=== PATIENT | female | born 1955 | race Caucasian/White ===

== ENCOUNTER 2016-07-15 10:39 | Outpatient (CLI) | payer OTHER | END 2016-07-15 10:40 | disposition home or self-care (01) | DX: R53.83 Other fatigue (principal); E55.9 Vitamin D deficiency, unspecified; F32.9 Major depressive disorder, single episode, unspecified ==

== ENCOUNTER 2016-09-16 09:41 | Outpatient (CLI) | payer OTHER | END 2016-09-16 09:42 | disposition home or self-care (01) | DX: E03.9 Hypothyroidism, unspecified (principal) ==

== ENCOUNTER 2016-11-11 08:00 | Outpatient (CLI) | payer OTHER | END 2016-11-11 08:01 | disposition home or self-care (01) | DX: R19.7 Diarrhea, unspecified (principal); K58.0 Irritable bowel syndrome with diarrhea ==

== ENCOUNTER 2016-11-11 09:16 | Outpatient (CLI) | payer OTHER ==
[2016-11-11 18:13] LABS: BASOPHILS % (AUTO) 0.7 %; EOSINOPHILS # (AUTO) 0.1 10^3/uL (0.0-0.7); EOSINOPHILS % (AUTO) 0.9 %; HCT - HEMATOCRIT 37.8 % (37.0-47.0); HGB - HEMOGLOBIN 12.5 g/dL (12.0-16.0); LYMPHOCYTES % (AUTO) 31.6 %; MEAN CORPUSCULAR HEMOGLOBIN 30.5 pg (27.0-31.0); MEAN CORPUSCULAR HGB CONC 32.9 g/dL (32.0-36.0); MEAN CORPUSCULAR VOLUME 92.5 fL (81.0-99.0); MEAN PLATELET VOLUME 8.3 fL (7.9-10.8); MONOCYTES # (AUTO) 0.5 10^3/uL (0.0-1.0); NEUTROPHILS # (AUTO) 3.6 10^3/uL (1.5-6.6); NEUTROPHILS % (AUTO) 58.8 %; NUCLEATED RED BLOOD CELLS AUTO 0.1 /100WBC; RED BLOOD COUNT 4.09 10^6/uL (4.20-5.40); RED CELL DISTRIBUTION WIDTH 13.7 % (12.0-15.0); UNCORRECTED WHITE BLOOD COUNT 6.2 x10^3/uL; WHITE BLOOD COUNT 6.2 x10^3/uL (4.8-10.8)
== END 2016-11-11 09:17 | disposition home or self-care (01) ==
LOC: LAB.F 09:16
PROVIDERS: ATTEND Nurse Practitioner Family
DX: G89.4 Chronic pain syndrome (principal)
CPT/HCPCS: 36415; 81599; 85025; 87177; 87209; 87329

== ENCOUNTER 2017-02-03 10:48 | Outpatient (CLI) | payer OTHER ==
[2017-02-03 17:54] LABS: BASOPHILS % (AUTO) 0.9 %; EOSINOPHILS % (AUTO) 1.1 %; HCT - HEMATOCRIT 40.7 % (37.0-47.0); HGB - HEMOGLOBIN 13.3 g/dL (12.0-16.0); LYMPHOCYTES # (AUTO) 1.6 10^3/uL (1.5-3.5); LYMPHOCYTES % (AUTO) 35.6 %; MEAN CORPUSCULAR HEMOGLOBIN 30.5 pg (27.0-31.0); MEAN CORPUSCULAR HGB CONC 32.8 g/dL (32.0-36.0); MEAN CORPUSCULAR VOLUME 93.1 fL (81.0-99.0); MEAN PLATELET VOLUME 7.8 fL (7.9-10.8); MONOCYTES # (AUTO) 0.3 10^3/uL (0.0-1.0); NEUTROPHILS # (AUTO) 2.5 10^3/uL (1.5-6.6); NEUTROPHILS % (AUTO) 56.4 %; NUCLEATED RED BLOOD CELLS AUTO 0.1 /100WBC; RED BLOOD COUNT 4.37 10^6/uL (4.20-5.40); RED CELL DISTRIBUTION WIDTH 13.9 % (12.0-15.0); UNCORRECTED WHITE BLOOD COUNT 4.5 x10^3/uL; WHITE BLOOD COUNT 4.5 x10^3/uL (4.8-10.8)
[2017-02-03 18:40] LABS: ALBUMIN/GLOBULIN RATIO 1.6 (1.0-2.2); BILIRUBIN,TOTAL 0.9 mg/dL (0.2-1.0); BUN - BLOOD UREA NITROGEN 21 mg/dL (6-20); CALCIUM 9.2 mg/dL (8.5-10.3); CARBON DIOXIDE - CO2 28 mmol/L (21-32); CHLORIDE 103 mmol/L (101-111); CHOL/HDL RATIO 3.6 (<4.4); CHOLESTEROL 238 mg/dL; CREATININE 0.8 mg/dL (0.4-1.0); GFR - MDRD 72 (>89); GLUCOSE 81 mg/dL (70-100); HDL CHOLESTEROL 66 mg/dL; LDL/HDL RATIO 2.4 (<4.4); POTASSIUM 3.9 mmol/L (3.5-5.0); SODIUM 137 mmol/L (135-145); TOTAL PROTEIN 6.8 g/dL (6.7-8.2); TRIGLYCERIDES 58 mg/dL; VLDL CHOLESTEROL 12 mg/dL
[2017-02-03 18:54] LABS: FERRITIN 61.1 ng/mL (11.0-306.8)
[2017-02-03 19:08] LABS: THYROID STIMULATING HORMONE 1.85 uIU/mL (0.34-5.60)
== END 2017-02-03 10:49 | disposition home or self-care (01) ==
LOC: LAB.F 10:48
PROVIDERS: ATTEND Nurse Practitioner Family
DX: Z00.00 Encounter for general adult medical examination without abnormal findings (principal); E55.9 Vitamin D deficiency, unspecified; E78.5 Hyperlipidemia, unspecified; E03.9 Hypothyroidism, unspecified
CPT/HCPCS: 36415; 80053; 80061; 82306; 82728; 84436; 84439; 84443; 84481; 85025

== ENCOUNTER 2017-05-12 09:59 | Outpatient (CLI) | payer OTHER ==
[2017-05-12 18:12] LABS: BASOPHILS % (AUTO) 1.1 %; EOSINOPHILS % (AUTO) 1.1 %; HCT - HEMATOCRIT 39.2 % (37.0-47.0); LYMPHOCYTES # (AUTO) 1.6 10^3/uL (1.5-3.5); LYMPHOCYTES % (AUTO) 42.8 %; MEAN CORPUSCULAR HEMOGLOBIN 30.8 pg (27.0-31.0); MEAN CORPUSCULAR HGB CONC 33.2 g/dL (32.0-36.0); MEAN CORPUSCULAR VOLUME 92.9 fL (81.0-99.0); MEAN PLATELET VOLUME 7.9 fL (7.9-10.8); MONOCYTES # (AUTO) 0.3 10^3/uL (0.0-1.0); MONOCYTES % (AUTO) 8.9 %; NEUTROPHILS # (AUTO) 1.8 10^3/uL (1.5-6.6); NEUTROPHILS % (AUTO) 46.1 %; RED BLOOD COUNT 4.22 10^6/uL (4.20-5.40); RED CELL DISTRIBUTION WIDTH 13.5 % (12.0-15.0); UNCORRECTED WHITE BLOOD COUNT 3.8 x10^3/uL; WHITE BLOOD COUNT 3.8 x10^3/uL (4.8-10.8)
[2017-05-12 18:40] LABS: THYROID STIMULATING HORMONE 2.67 uIU/mL (0.34-5.60)
[2017-05-12 18:45] LABS: FERRITIN 68.8 ng/mL (11.0-306.8)
[2017-05-12 18:53] LABS: ALBUMIN/GLOBULIN RATIO 1.4 (1.0-2.2); BILIRUBIN,TOTAL 0.6 mg/dL (0.2-1.0); BUN - BLOOD UREA NITROGEN 23 mg/dL (6-20); CARBON DIOXIDE - CO2 27 mmol/L (21-32); CHLORIDE 105 mmol/L (101-111); CHOL/HDL RATIO 3.7 (<4.4); CHOLESTEROL 257 mg/dL; CREATININE 0.8 mg/dL (0.4-1.0); GFR - MDRD 72 (>89); GLUCOSE 87 mg/dL (70-100); HDL CHOLESTEROL 69 mg/dL; LDL/HDL RATIO 2.5 (<4.4); POTASSIUM 4.1 mmol/L (3.5-5.0); SODIUM 137 mmol/L (135-145); TOTAL PROTEIN 7.2 g/dL (6.7-8.2); TRIGLYCERIDES 66 mg/dL; VLDL CHOLESTEROL 13 mg/dL
== END 2017-05-12 10:00 | disposition home or self-care (01) ==
LOC: LAB.F 09:59
PROVIDERS: ATTEND Nurse Practitioner Family
DX: Z00.00 Encounter for general adult medical examination without abnormal findings (principal); E55.9 Vitamin D deficiency, unspecified; E78.5 Hyperlipidemia, unspecified; E03.9 Hypothyroidism, unspecified
CPT/HCPCS: 36415; 80053; 80061; 82306; 82728; 84436; 84439; 84443; 84481; 85025

== ENCOUNTER 2018-03-16 14:54 | Outpatient (CLI) | payer OTHER ==
--- NOTE | 2018-03-17 10:38 | DEXA Report ---
Reason: SCREENING, POST MENOPAUSAL Procedure Date: 03/16/2018 Accession Number: [id number] / [id number] Procedure: DEX - Dexa Spine and/or Hip CPT Code: FULL RESULT: EXAM: Dexa Spine and/or Hip DATE: 03/16/2018 3:46 PM CLINICAL HISTORY: SCREENING, POST MENOPAUSAL TECHNIQUE: Dual energy x-ray absorptiometry (DXA) was performed on a [id number] System. Regions measured are the AP Spine, femoral neck, and if needed forearm. COMPARISON: None. In accordance with the International Society for Clinical Densitometry (ISCD) guidelines, data from previous exams may be reanalyzed using current recommendations and techniques. This is done to allow a more accurate basis for comparison with the current study. FINDINGS: The data for the lumbar spine is as follows: BMD (g/cm/cm) T-SCORE Z-SCORE REGION L1 0.964 -1.4 0.1 L2 1.042 -1.3 0.2 L3 1.091 -0.9 0.6 L4 1.165 -0.3 1.2 TOTAL 1.074 -0.9 0.6 NOTE: All evaluable vertebrae are used for classification The data for the hip is as follows: BMD (g/cm/cm) T-SCORE Z-SCORE REGION Neck 0.775 -1.9 -0.5 TOTAL 0.843 -1.3 -0.2 NOTE: The femoral neck or total proximal femur, whichever is lowest, is used for classification. IMPRESSION: THE WHO CLASSIFICATION BASED ON THE INTERNATIONAL REFERENCE STANDARD IS OSTEOPENIA. THE FRACTURE RISK IS INCREASED. RECOMMENDATION: Patients with diagnosis of osteoporosis or osteopenia should have regular bone mineral density assessment. For those eligible for Medicare, routine testing is allowed once every 2 years. Testing frequency can be increased for patients who have rapidly progressing disease or for those who are receiving medical therapy to restore bone mass. COMMENT: World Health Organization (WHO) definitions for osteoporosis and osteopenia: NORMAL BMD: T-score at -1.0 or higher, fracture risk is low OSTEOPENIA BMD: T-score between -1.0 and -2.5, fracture risk is increased. OSTEOPOROSIS BMD: T-score at -2.5 or lower, fracture risk is high. National Osteoporosis Foundation recommends: 1. Obtain adequate dietary calcium (at least 1200 mg per day) and vitamin D (400-800 international units per day). 2. Participate, as appropriate, in regular weightbearing and muscle-strengthening exercise. 3. Avoid tobacco use and reduce alcohol and caffeine intake. 4. For more detailed information see the website at www.NOF.org.
== END 2018-03-16 14:55 | disposition home or self-care (01) ==
LOC: DI 14:54
PROVIDERS: ATTEND Registered Nurse
DX: Z13.820 Encounter for screening for osteoporosis (principal); M85.88 Other specified disorders of bone density and structure, other site; N95.8 Other specified menopausal and perimenopausal disorders
CPT/HCPCS: 77080

== ENCOUNTER 2018-04-20 14:41 | Outpatient (CLI) | payer OTHER ==
--- NOTE | 2018-04-21 16:53 | XRAY Report ---
Reason: NECK PAIN,LIMITED ROM WITH LEFT FLEXION AND ROTATI Procedure Date: 04/20/2018 Accession Number: [id number] / [id number] Procedure: XR - Cervical Spine 2 View CPT Code: FULL RESULT: EXAM: CERVICAL SPINE RADIOGRAPHY EXAM DATE: 04/20/2018 03:04 PM. CLINICAL HISTORY: NECK PAIN,LIMITED ROM WITH LEFT FLEXION AND ROTATION. COMPARISONS: None. TECHNIQUE: 3 views. FINDINGS: Alignment: Straightening of normal cervical lordosis. No spondylolisthesis or scoliosis. Bones: The cervical vertebral bodies and posterior elements are well visualized from the skull base through C7-T1. No fractures or bone lesions. Disks: C4-C5, C5-C6, C6-C7 osteophyte disk space narrowing. Facets: Mid to lower facet arthropathy. Soft Tissues: Normal. No prevertebral soft tissue swelling. The visualized lung apices are clear. IMPRESSION: Moderate DJD RADIA
== END 2018-04-20 14:42 | disposition home or self-care (01) ==
LOC: DI 14:41
PROVIDERS: ATTEND Registered Nurse
DX: M47.812 Spondylosis without myelopathy or radiculopathy, cervical region (principal)
CPT/HCPCS: 72040

== ENCOUNTER 2019-03-29 15:36 | Outpatient (CLI) | payer OTHER ==
--- NOTE | 2019-03-31 01:12 | XRAY Report ---
Reason: PAIN IN RIGHT KNEE Procedure Date: 03/29/2019 Accession Number: [id number] / [id number] Procedure: XR - Knee 2 View RT CPT Code: FULL RESULT: EXAM: RIGHT KNEE RADIOGRAPHY EXAM DATE: 03/29/2019 03:46 PM. CLINICAL HISTORY: PAIN IN RIGHT KNEE. COMPARISON: None. TECHNIQUE: 2 views. FINDINGS: Bones: Normal. No fractures or bone lesions. Joints: Normal. No effusion. No subluxations. Soft Tissues: Anterior soft tissue swelling. IMPRESSION: Soft tissue swelling, but no evidence of fracture. RADIA
== END 2019-03-29 15:37 | disposition home or self-care (01) ==
LOC: DI 15:36
PROVIDERS: ATTEND Nurse Practitioner Family
DX: M25.561 Pain in right knee (principal); R22.41 Localized swelling, mass and lump, right lower limb

== ENCOUNTER 2019-09-06 12:01 | Outpatient (CLI) | payer MEDICARE, OTHER ==
--- NOTE | 2019-09-06 15:44 | XRAY Report ---
Reason: LOCALIZED EDEMA Procedure Date: 09/06/2019 Accession Number: [id number] / [id number] Procedure: XR - Hand 2 View RT CPT Code: Final Report FULL RESULT: EXAM: RIGHT HAND RADIOGRAPHY EXAM DATE: 09/06/2019 12:15 PM. CLINICAL HISTORY: LOCALIZED EDEMA. Swelling at the thumb and middle finger. COMPARISON: WRIST 4 VIEW RT 01/01/2013 4:32 PM. TECHNIQUE: 2 views. FINDINGS: Bones: Normal. No fractures or bone lesions. Joints: Normal. No subluxations. Soft Tissues: Normal. No significant soft tissue swelling. IMPRESSION: Normal right hand radiography. RADIA
== END 2019-09-06 12:02 | disposition home or self-care (01) ==
LOC: DI 12:01
PROVIDERS: ATTEND Nurse Practitioner Family
DX: R60.0 Localized edema (principal)

== ENCOUNTER 2019-12-10 14:26 | Outpatient (CLI) | payer MEDICARE, OTHER ==
--- NOTE | 2019-12-18 09:43 | Mammography Report ---
BILATERAL DIGITAL SCREENING MAMMOGRAM 3D/2D: 12/10/2019 CLINICAL: Routine screening. No prior exams were available for comparison. The tissue of both breasts is heterogeneously dense. T his may lower the sensitivity of mammography. There is a possible 1 cm equal density focal asymmetry in the right breast central to the nipple midd le depth. No other significant masses, calcifications, or other findings are seen in either breast. IMPRESSION: INCOMPLETE: NEEDS ADDITIONAL IMAGING EVALUATION The possible 1 cm equal density focal asymmetry in the right breast is indeterminate. Additional vie ws with possible ultrasound are recommended. This exam was interpreted at Station ID: [id number]. NOTE: For mammograms, a report in lay terms will be sent to the patient. Approximately 15% of breast malignancies will not be visualized mammographically. In the management of a palpable breast mass, a negative mammogram must not discourage biopsy of a clinically suspicious lesion. Electronically Signed By: Chuck Odell M.D. aty/:12/17/2019 17:18:11 ACR BI-RADS Category 0: Incomplete 3340F PARENCHYMAL PATTERN: (D) - The breast(s) demonstrate(s) heterogeneously dense fibroglandular ananya christianson. BI-RADS CATEGORY: (0) - 0 Mammo and [place] [id number] Immediate follow-up LATERALITY: (R)
== END 2019-12-10 14:27 | disposition home or self-care (01) ==
LOC: DI 14:26
PROVIDERS: ATTEND Registered Nurse
DX: Z12.31 Encounter for screening mammogram for malignant neoplasm of breast (principal); R92.8 Other abnormal and inconclusive findings on diagnostic imaging of breast
CPT/HCPCS: 77063; 77067

== ENCOUNTER 2020-01-14 08:58 | Outpatient (CLI) | payer MEDICARE, OTHER ==
--- NOTE | 2020-01-15 15:12 | Mammography Report ---
UNILATERAL RIGHT DIGITAL DIAGNOSTIC MAMMOGRAM 3D/2D: 01/14/2020 CLINICAL: Patient returns today to evaluate a focal asymmetry in the right breast. Comparison is made to exams dated: 12/10/2019 mammogram - [facility], 04/17/2015 [facility], and 05/04/2012 mammogram - [facility]. The tissue of right breast is heterogeneously dense. This may lower the sensitivity of mammography. There is a 7 mm irregular asymmetry with an indistinct margin in the right breast central to the nipp le anterior depth 3.5 cm from the nipple. This is less prominent. No other significant masses or calcifications are seen in the breast. IMPRESSION: INCOMPLETE: NEEDS ADDITIONAL IMAGING EVALUATION The 7 mm irregular asymmetry in the right breast is indeterminate. An ultrasound was recommended and scheduled to immediately follow this examination. This exam was interpreted at Station ID: [id number]. NOTE: For mammograms, a report in lay terms will be sent to the patient. Approximately 15% of breast malignancies will not be visualized mammographically. In the management of a palpable breast mass, a negative mammogram must not discourage biopsy of a clinically suspicious lesion. Electronically Signed By: James Oconnor M.D. jr/:01/14/2020 10:11:54 ACR BI-RADS Category 0: Incomplete 3340F PARENCHYMAL PATTERN: (D) - The breast(s) demonstrate(s) heterogeneously dense fibroglandular ananya christianson. BI-RADS CATEGORY: (0) - 0 Ultrasound [id number] Immediate follow-up LATERALITY: (B)
--- NOTE | 2020-01-15 15:12 | Ultrasound Report ---
LIMITED ULTRASOUND OF RIGHT BREAST: 01/14/2020 CLINICAL: Patient returns today to evaluate a density in the right breast. Comparison is made to exams dated: 01/14/2020 mammogram, 12/10/2019 mammogram - [facility], 04/17/2015 mammogram, and 05/04/2012 mammogram - [facility]. Ultrasound of the right breast retroareolar was performed. No significant abnormalities were seen sonographically in the right breast. IMPRESSION: NEGATIVE There is no sonographic evidence of malignancy. Previously described small asymmetry, seen only on m ammographic images, is unchanged over multiple prior studies and is statistically benign. [facility] is recommended. This exam was interpreted at Station ID: [id number]. Electronically Signed By: James Oconnor M.D. jr/:01/14/2020 11:13:56 Ultrasound BI-RADS: 1 Negative BI-RADS CATEGORY: (1) - 1 RECOMMENDATION: (ANNUAL) - Recommend routine annual screening mammography. [id number] 1 year screening LATERALITY: (B)
== END 2020-01-14 08:59 | disposition home or self-care (01) ==
LOC: DI 08:58
PROVIDERS: ATTEND Registered Nurse
DX: R92.8 Other abnormal and inconclusive findings on diagnostic imaging of breast (principal)
CPT/HCPCS: 76642

== ENCOUNTER 2020-03-23 10:25 | Emergency (ER) | payer MEDICARE, OTHER ==
[2020-03-23 11:10] LABS: BASOPHILS # (AUTO) 0.1 10^3/uL (0.0-0.1); BASOPHILS % (AUTO) 1.2 %; EOSINOPHILS # (AUTO) 0.1 10^3/uL (0.0-0.7); EOSINOPHILS % (AUTO) 1.9 %; HGB - HEMOGLOBIN 13.9 g/dL (12.0-16.0); LYMPHOCYTES # (AUTO) 1.4 10^3/uL (1.5-3.5); LYMPHOCYTES % (AUTO) 33.6 %; MEAN CORPUSCULAR HEMOGLOBIN 31.3 pg (27.0-31.0); MEAN CORPUSCULAR HGB CONC 33.7 g/dL (32.0-36.0); MEAN PLATELET VOLUME 8.8 fL (7.9-10.8); MONOCYTES # (AUTO) 0.4 10^3/uL (0.0-1.0); NEUTROPHILS # (AUTO) 2.3 10^3/uL (1.5-6.6); NEUTROPHILS % (AUTO) 54.1 %; PLT - PLATELET COUNT 267 10^3/uL (130-450); RED BLOOD COUNT 4.44 10^6/uL (4.20-5.40); RED CELL DISTRIBUTION WIDTH 12.8 % (12.0-15.0); WHITE BLOOD COUNT 4.2 x10^3/uL (4.8-10.8)
[2020-03-23 11:22] LABS: ALBUMIN 4.2 g/dL (3.2-5.5); ALBUMIN/GLOBULIN RATIO 1.4 (1.0-2.2); BILIRUBIN,TOTAL 0.8 mg/dL (0.2-1.0); CALCIUM 9.3 mg/dL (8.5-10.3); CREATININE 0.8 mg/dL (0.4-1.0); TOTAL PROTEIN 7.2 g/dL (6.7-8.2)
--- NOTE | 2020-03-23 11:22 | XRAY Report ---
PROCEDURE: Chest 1 View X-Ray INDICATIONS: Chest pain TECHNIQUE: One view of the chest was acquired. COMPARISON: None FINDINGS: Surgical changes and devices: Cholecystectomy clips are seen. Lungs and pleura: No pleural effusions or pneumothorax. Lungs are clear. Mediastinum: Mediastinal contours appear normal. Heart size is normal. Bones and chest wall: No suspicious bony lesions. Age-appropriate degenerative changes are seen. Overlying soft tissues appear unremarkable. IMPRESSION: No acute cardiopulmonary process is seen. Postoperative and degenerative changes are seen. Reviewed by: Gonzales Cota MD on 03/23/2020 10:21 AM SHIRA Approved by: Gonzales Cota MD on 03/23/2020 10:21 AM SHIRA Station ID: [id number]
--- NOTE | 2020-03-23 11:28 | ED Physician Documentation ---
PD HPI CHEST PAIN - Stated complaint Stated Complaint: CP - Chief complaint Chief Complaint: Cardiac - History obtained from History obtained from: Patient - History of Present Illness Timing - onset: How many hours ago (3) Timing - onset during: Rest Timing - duration: Minutes (only lasted about 3 minutes of pressure feeling across chest. Then went away. No further symptoms this morning. She has had somewhat similar chest pressure with walking/moderate exertion for couple of months. Had some a year ago as well, during some light exertion. Saw Card iologist who did ETT.) Timing - details: Gradual onset, Still present, Intermittant Review of Systems Constitutional: denies: Fever, Chills Nose: denies: Rhinorrhea / runny nose, Congestion Throat: denies: Sore throat Cardiac: reports: Chest pain / pressure. denies: Palpitations, Pedal edema, Calf pain Respiratory: denies: Dyspnea, Cough GI: denies: Abdominal Pain, Nausea, Vomiting Skin: denies: Rash, Lesions Neurologic: denies: Focal weakness, Numbness, Near syncope, Altered mental status, Headache PD PAST MEDICAL HISTORY - Past Medical History Cardiovascular: None Respiratory: None Neuro: None, Head injury, Headaches Endocrine/Autoimmune: None GI: GERD TRAINING AND DEVELOPMENT ASSISTANT: None : None HEENT: None Psych: Depression, Anxiety Musculoskeletal: Fibromyalgia Derm: None - Past Surgical History Past Surgical History: Yes General: Cholecystectomy Ortho: Spine surgery /TRAINING AND DEVELOPMENT ASSISTANT: section HEENT: Cataracts - Present Medications Home Medications: Ambulatory Orders Medication Instructions Recorded Confirmed Albuterol Sulfate [Albuterol 2 puffs IH QID #1 hfa.aer.ad 03/23/20 Sulfate Hfa] - Allergies Allergies/Adverse Reactions: Allergies Allergy/AdvReac Type Severity Reaction Status Date / Time metronidazole Allergy Unknown Verified 03/23/20 10:36 Penicillins AdvReac Unknown Verified 03/23/20 10:36 - Social History Does the pt smoke?: No Smoking Status: Never smoker Does the pt drink ETOH?: Yes ETOH Use: Beer Does the pt have substance abuse?: No - Immunizations Immunizations are current?: Yes PD ED PE NORMAL - Vitals Vital signs reviewed: Yes - General General: Alert and oriented X 3, No acute distress, Well developed/nourished - HEENT HEENT: Pharynx benign - Neck Neck: Supple, no meningeal sign, No adenopathy - Cardiac Cardiac: RRR, No murmur - Respiratory Respiratory: Clear bilaterally - Abdomen Abdomen: Soft, Non tender - Back Back: No CVA TTP - Derm Derm: Normal color, Warm and dry, No rash - Extremities Extremities: No deformity, No tenderness to palpate, Normal ROM s pain, No katarina ma, No calf tenderness / cord - Neuro Neuro: Alert and oriented X 3, No motor deficit, Normal speech Results - Vitals Vitals: Vital Signs - 24 hr 03/23/20 03/23/20 03/23/20 10:37 11:27 12:24 Temperature 97.9 C H 37.0 C Heart Rate 74 61 60 Respiratory 16 23 16 Rate Blood Pressure 133/53 H 128/64 122/66 O2 Saturation 99 98 98 Oxygen O2 Source Room air - EKG (time done) 10:32 Rate: Rate (enter#) (78) Rhythm: NSR Duson: Normal QRS: Poor R wave progression Ischemia: Normal ST segments. No: ST elevation c/w ischemia, ST depression - Labs Labs: Laboratory Tests 03/23/20 03/23/20 03/23/20 11:00 11:00 11:00 WBC 4.2 L RBC 4.44 Hgb 13.9 Hct 41.3 MCV 93.0 MCH 31.3 H MCHC 33.7 RDW 12.8 Plt Count 267 MPV 8.8 Neut # (Auto) 2.3 Lymph # (Auto) 1.4 L [place] # (Auto) 0.4 Eos # (Auto) 0.1 Baso # (Auto) 0.1 Absolute Nucleated RBC 0.00 Nucleated RBC % 0.0 Sodium 140 Potassium 4.1 Chloride 103 Carbon Dioxide 32 Anion Gap 5.0 L BUN 22 H Creatinine 0.8 Estimated GFR (MDRD) 72 L Glucose 80 Calcium 9.3 Total Bilirubin 0.8 AST 18 ALT 16 Alkaline Phosphatase 93 Troponin I High Sens < 2.3 L Total Protein 7.2 Albumin 4.2 Globulin 3.0 Albumin/Globulin Ratio 1.4 Lipase 38 - Rads (name of study) chest xray Radiology: Prelim report reviewed (no acute process), See rad report PD MEDICAL DECISION MAKING - ED course Complexity details: re-evaluated patient (Has had some exertional similar syptoms. Had Cardiology in [place] appt and had ETT that was normal. Continued to have CP with exertion. ), considered differential (brief CP this morning 3 hours ago. Also Feeling okay since. Can get ECG/CXR/Labs. ), d/w patient Departure - Departure Disposition: 01 Home, Self Care Clinical Impression: Chest discomfort Clinical Impression: (Ruled Out): Myocardial infarction Condition: Stable Record reviewed to determine appropriate education?: Yes Instructions: ED Chest Pain Atypical Unkn Cause Follow-Up: Meenakshi Rodriguez ARNP [Primary Care Provider] - Prescriptions: Albuterol Sulfate [Albuterol Sulfate Hfa] 2 puffs IH QID #1 hfa.aer.ad Comments: EKG/chest x-ray/blood tests are normal here so no signs of heart attack or significant heart or lung problems. It is unclear the cause of your symptoms f rom earlier today. For your dyspnea with activity, you could try an albuterol inhaler 2 puffs about 20 minutes prior to activity and see if it helps. If persistent symptoms, you can get back with your primary care or the it data architect you had seen to see if they want to do any further testing beyond the basic stress test they had done. Discharge Date/Time: 03/23/20 12:33
[2020-03-23 12:26] VITALS: BP 122/66
== END 2020-03-23 12:33 | disposition home or self-care (01) ==
LOC: ED 10:25
DX: R07.89 Other chest pain (principal); R06.00 Dyspnea, unspecified
CPT/HCPCS: 36415; 71045; 80053; 83690; 84484; 85025; 93005; 99284

== ENCOUNTER 2020-03-24 09:33 | Outpatient (CLI) | payer MEDICARE, OTHER ==
--- NOTE | 2020-03-24 12:56 | DEXA Report ---
PROCEDURE: Dexa Spine and/or Hip INDICATIONS: BONE DISORDER TECHNIQUE: Dual energy x-ray absorptiometry (DXA) was performed on a [employer] System. Regions measur ed are the AP Spine, femoral neck, and if needed forearm. COMPARISON: DEXA 03/16/2018 FINDINGS: Lumbar Spine: Bone Mineral Density 1.054 g/cm/cm,T score -1.1, compared to 0.9 on prior exam Left Hip: Bone Mineral Density 0.82 g/cm/cm,T score -1.4, compared to -1.3 on prior exam. Left Femoral Neck: Bone Mineral Density 0.768 g/cm/cm, T score -1.9, compared to -1.9 on prior exam. (T score greater or equal to -1.0: NORMAL) (T score from -1.1 to -2.4: OSTEOPENIA) (T score less than or equal to -2.5 to: OSTEOPOROSIS) Impression: Mild osteopenia left hip and moderate in the left femoral neck relatively stable compared to prior exam. Slight loss of bone density within the lumbar spine. Patients with diagnosis of osteoporosis or osteopenia should have regular bone mineral density assess ment. For those eligible for Medicare, routine testing is allowed once every 2 years. Testing frequ ency can be increased for patients who have rapidly progressing disease or for those who are receivin g medical therapy to restore bone mass. Reviewed by: Hattie Mcdonald MD on 03/24/2020 12:54 PM PDT Approved by: Hattie Mcdonald MD on 03/24/2020 12:54 PM PDT Station ID: [id number]
== END 2020-03-24 09:34 | disposition home or self-care (01) ==
LOC: DI 09:33
PROVIDERS: ATTEND Registered Nurse
DX: M85.89 Other specified disorders of bone density and structure, multiple sites (principal)
CPT/HCPCS: 77080

== ENCOUNTER 2020-04-25 15:18 | Outpatient (CLI) | payer MEDICARE, OTHER | END 2020-04-25 15:19 | disposition home or self-care (01) | LOC: LAB 15:18 | PROVIDERS: ATTEND Surgery | DX: Z01.812 Encounter for preprocedural laboratory examination (principal); K64.9 Unspecified hemorrhoids; Z20.828 Contact with and (suspected) exposure to other viral communicable diseases ==

== ENCOUNTER 2020-04-28 06:56 | Day surgery (SDC) | payer MEDICARE, OTHER ==
[2020-04-28] MEDS ORDERED: ONDANSETRON 4 MG/2 ML VIAL IVP ONE (06:57)
[2020-04-28] MEDS ORDERED: PROPOFOL 200 MG/20 ML VIAL IVP ONE (06:57)
[2020-04-28] MEDS ORDERED: MIDAZOLAM 2 MG/2 ML VIAL IVP ONE (06:57)
[2020-04-28] MEDS ORDERED: fentaNYL 100 MCG/2 ML VIAL IVP ONE (06:57)
[2020-04-28] MEDS ORDERED: KETOROLAC 30 MG/ML VIAL IVP ONE (06:57)
[2020-04-28] MEDS ORDERED: DEXAMETHASONE 4 MG/ML VIAL IVP ONE (06:57)
[2020-04-28] MEDS ORDERED: LIDOCAINE-MPF 2% 5 ML VIAL IM ONE (06:57)
[2020-04-28] MEDS ORDERED: CEFAZOLIN SODIUM IN 0.9 % NACL 2 GM/100 ML BAG IV ONE (07:24)
[2020-04-28] MEDS ORDERED: LACTATED RINGERS 1,000 ML IV ONE ×2 (07:28→10:03)
--- NOTE | 2020-04-28 08:29 | ANESTHESIA ---
Pre-Anesthesia VS, & Labs - Diagnosis large thrombosed external hemorrhoid - Procedure external hemorrhoidectomy Vital Signs: Temp Pulse Resp BP Pulse Ox 36.8 C 62 12 132/58 H 100 04/28/20 07:28 04/28/20 07:28 04/28/20 07:28 04/28/20 07:28 04/28/20 07:28 Height: 5 ft 3 in Weight (kg): 69 kg Body Mass Index: 26.9 BMI Classification: Overweight - NPO >8 hours - Is Patient ?: No Home Medications and Allergies Home Medications: Ambulatory Orders Acyclovir [Zovirax] 400 mg PO TID PRN 04/17/20 Doxylamine Succinate [Unisom] 25 mg PO QPM PRN 04/17/20 Naltrexone HCl 50 mg PO DAILY 04/17/20 Acyclovir [Zovirax] 400 mg PO TID PRN 04/17/20 Doxylamine Succinate [Unisom] 25 mg PO QPM PRN 04/17/20 Naltrexone HCl 50 mg PO DAILY 04/17/20 Allergies/Adverse Reactions: Allergies Allergy/AdvReac Type Severity Reaction Status Date / Time metronidazole Allergy Hives Verified 04/17/20 14:26 erythromycin base AdvReac Emesis Verified 04/17/20 14:26 Penicillins AdvReac Unknown Verified 03/23/20 10:36 Anes History & Medical History - Anesthetic History Anesthesia Complications: reports: No previous complications - Medical History Cardiovascular: reports: None Pulmonary: reports: Asthma (exercise induced asthma. 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.), Headaches Musculoskeletal: reports: Fibromyalgia Endocrine/Autoimmune: reports: None, Other (eliz tse syndrome) Blood Disorders: reports: None Skin: reports: None Smoking Status: Never smoker Psychosocial: reports: Other (PTSD) History of Cancer?: No - Surgical History General: Cholecystectomy, Colonoscopy Eyes Ears Nose Throat (EENT): Cataracts Gynecologic: section Orthopedic: Spine surgery Exam General: Alert, Oriented x3, Cooperative, No acute distress Dental: WNL Mouth Openin Fingerbreadth Neck Mobility: Normal Mallampati classification: II Thyromental Distance: 4-6 cm Mental/Cognitive Status: Alert/Oriented X3, Normal for patient Plan Anesthesia Type: General Consent for Procedure(s) Verified and Reviewed: Yes Code Status: Attempt Resuscitation ASA classification: 2-Mild systemic disease Is this case an emergency?: No
[2020-04-28] MEDS ORDERED: BUPIVACAINE 0.5% PF 30 ML VIAL ONE (09:00)
[2020-04-28] MEDS ORDERED: LIDOCAINE 1%-EPI 1:100000 20 ML MDV ONE (09:01)
[2020-04-28] MEDS ORDERED: BUPIVACAINE 0.5% PF 30 ML VIAL INFIL ONE ×2 (09:31)
[2020-04-28] MEDS ORDERED: LIDOCAINE 1%-EPI 1:100000 20 ML MDV SUBQ ONE ×2 (09:32)
[2020-04-28] MEDS ORDERED: ONDANSETRON 4 MG/2 ML VIAL IVP PRN ×2 (09:53→09:58)
[2020-04-28] MEDS ORDERED: ePHEDrine 50 MG/ML VIAL IVP PRN (09:53)
[2020-04-28] MEDS ORDERED: HYDROmorphone 0.5 MG/0.5 ML SYRINGE IVP PRN (09:53)
[2020-04-28] MEDS ORDERED: METOCLOPRAMIDE 10 MG/2 ML VIAL IVP PRN (09:53)
[2020-04-28] MEDS ORDERED: ATROPINE ABBOJECT 1 MG/10 ML SYRINGE IVP PRN (09:53)
[2020-04-28] MEDS ORDERED: fentaNYL 100 MCG/2 ML VIAL IVP PRN (09:53)
[2020-04-28] MEDS ORDERED: MORPHINE 2 MG/ML CARPUJECT IVP PRN (09:53)
[2020-04-28] MEDS ORDERED: NALOXONE 0.4 MG/ML VIAL IVP PRN (09:53)
--- NOTE | 2020-04-28 09:58 | OPERATIVE REPORT ---
Operative Report - General Planned Procedure: Examination under anesthesia with external hemorrhoidectomy Pre-Op Diagnosis: Thrombosed external hemorrhoid and residual skin tag Procedure Performed: Examination under anesthesia with external hemorrhoidectomy and exciion of external skin tag Post Op Diagnosis: Thrombosed external hemorrhoid and residual skin tag - Procedure Note Primary Surgeon: Matthew Anesthesia Provider: AR Mejia Anesthesia Technique: General LMA Pathology: Portions of hemorrhoid tissue to pathology in formalin Estimated Blood Loss (mL): 10 Findings: Symptomatic external hemorrhoids and skin tags - Other Other Information/Narrative: After obtaining informed consent, the patient is brought to the operating room and placed im the supine position on the operating table. Following successful induction of anesthesia, the patient's legs were placed in stirrups for lithotomy position and all bony prominences padded. The perineal and perianal area were prepped and draped in the standard surgical fashion. A Time Out was help per scope protocol. All elements of the surgical safety check list were followed before, during and after the procedure. The perianal region was examined and an obturator placed within the anal canal. Internal hemorroids were noted to be only moderate and without prolapse. No fissure or fistula was appreciated. A large hemorrhoid was appreciated at the 7 o'clock radian and a large residual skin tag at the 4 o'clock radian. These are the two lesions that have been causing the patient distress. The lesion at 7 o'clock was addressed first. The hemorroid was grasped at its apex 1.5 cm proximal to the dentate line. A 3-0 chromic suture was placed at the apex. The mucosa was opened using a 15 blade scalpel. The edges of the mucosa lifted and the vein gently dissected from the underlying muscle and overlying mucosa and amputated at the anal opening. The mucosa was then closed in a running, locking fashion with chromic suture. The skin tag at 4 o'clock was addressed next. This was grasped and the redundant skin excised in an elliptical fashion. The defect was then closed with 3-0 chromic suture. The wound was checked for hemostasis and dressed with dibucaine and gelfoam. All sponge, needle, and instrument counts were correct at the conclusion of the case. The patient was allowed to awaken from anesthesia and taken to the post anesthesia care unit in good condition.
[2020-04-28] MEDS ORDERED: LACTATED RINGERS 1,000 ML IV SCH (10:00)
[2020-04-28] MEDS ORDERED: LIDOCAINE OINTMENT 5% 35.44 GM TUBE ONE (10:03)
[2020-04-28] MEDS ORDERED: LIDOCAINE OINTMENT 5% 35.44 GM TUBE TOP ONE (10:08)
[2020-04-28 11:05] VITALS: BP 104/89
--- NOTE | 2020-04-28 12:17 | ANESTHESIA POST OP EVALUATION ---
Anesthesia Post Eval - Post Anesthesia Eval Vitals: Last Vital Signs Temp 36.4 C L 04/28/20 11:04 Pulse 70 04/28/20 11:04 Resp 12 04/28/20 11:04 BP 104/89 H 04/28/20 11:04 Pulse Ox 98 04/28/20 11:04 CV Function Including HR & BP: positive: Stable Pain Control: positive: Satisfactory Nausea & Vomiting: positive: Negative Mental Status: positive: Baseline Respiratory Status: Airway Patent Hydration Status: Satisfactory
== END 2020-04-28 06:57 | disposition home or self-care (01) ==
LOC: SDS 06:56
PROVIDERS: ATTEND Surgery
PROC: 06BY0ZC Excision of Hemorrhoidal Plexus, Open Approach (ICD-10-PCS; principal; 2020-04-28 08:30)
DX: K64.5 Perianal venous thrombosis (principal); K64.4 Residual hemorrhoidal skin tags; K64.8 Other hemorrhoids; J45.990 Exercise induced bronchospasm; K21.9 Gastro-esophageal reflux disease without esophagitis
CPT/HCPCS: 46320; A9270; J0690; J7120

== ENCOUNTER 2020-04-30 10:31 | Emergency (ER) | payer MEDICARE, OTHER ==
--- NOTE | 2020-04-30 10:47 | ED Physician Documentation ---
PD HPI ABD PAIN - Stated complaint Stated Complaint: SURGERY COMPLICATIONS - Chief complaint Chief Complaint: Abd Pain - History obtained from History obtained from: Patient - Additional information Additional information: Hemorrhoidectomy 2 days ago. Has not had a bowel movement since. Stopped urinating last night despite the feeling of needing to urinate. Stool softeners and prune juice have been ineffective. Review of Systems Constitutional: reports: Chills. denies: Fever Nose: reports: Reviewed and negative Throat: reports: Reviewed and negative GI: reports: Abdominal Pain, Constipation. denies: Bloody / black stool PD PAST MEDICAL HISTORY - Past Medical History Cardiovascular: None Respiratory: Asthma (exercise induced asthma. 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.), Headaches Endocrine/Autoimmune: None, Other (eliz tse syndrome) GI: GERD (diet controlled) FOLLOW UP CLERK: None : None HEENT: None Psych: Depression Musculoskeletal: Fibromyalgia Derm: None - Past Surgical History Past Surgical History: Yes General: Cholecystectomy, Colonoscopy Ortho: Spine surgery /FOLLOW UP CLERK: section HEENT: Cataracts - Present Medications Home Medications: Ambulatory Orders Medication Instructions Recorded Confirmed Acyclovir [Zovirax] 400 mg PO TID PRN 04/17/20 04/28/20 Doxylamine Succinate [Unisom] 25 mg PO QPM PRN 04/17/20 04/28/20 Naltrexone HCl 50 mg PO DAILY 04/17/20 04/28/20 diazePAM [Valium] 5 mg PO TID PRN #20 tablet 04/18/20 04/28/20 traMADol [Ultram] 100 mg PO Q6H PRN #30 tablet 04/18/20 04/28/20 Methylprednisolone [Medrol Dose 1 each PO .PACKAGEINSTRUCTIONS 6 04/30/20 Pack] Days #1 each bisacodyL [Dulcolax] 10 mg PO BID PRN #10 tablet 04/30/20 polyethylene glycoL 3350 [Miralax] 17 gm PO DAILY PRN #1 bottle 04/30/20 - Allergies Allergies/Adverse Reactions: Allergies Allergy/AdvReac Type Severity Reaction Status Date / Time metronidazole Allergy Hives Verified 04/30/20 10:39 erythromycin base AdvReac Emesis Verified 04/30/20 10:39 Penicillins AdvReac Unknown Verified 04/30/20 10:39 - Social History Does the pt smoke?: No Smoking Status: Never smoker Does the pt drink ETOH?: Yes Does the pt have substance abuse?: No - Immunizations Immunizations are current?: Yes PD ED PE NORMAL - Vitals Vital signs reviewed: Yes - General General: Alert and oriented X 3, No acute distress - HEENT HEENT: Pharynx benign - Cardiac Cardiac: RRR, No murmur - Respiratory Respiratory: No respiratory distress, Clear bilaterally - Rectal Rectal: Other (Tender on rectal exam, did not tolerate digital rectal exam but an enema was placed presuming fecal impaction.) - Neuro Neuro: Alert and oriented X 3, Normal speech Results - Vitals Vitals: Vital Signs - 24 hr 04/30/20 04/30/20 04/30/20 10:36 11:17 12:14 Temperature 36.8 C Heart Rate 61 63 64 Respiratory 18 16 16 Rate Blood Pressure 140/45 H 134/54 H 143/64 H O2 Saturation 99 100 100 04/30/20 04/30/20 04/30/20 14:26 14:30 14:42 Temperature Heart Rate 77 80 76 Respiratory 17 16 17 Rate Blood Pressure 136/66 H 135/53 H O2 Saturation 100 100 04/30/20 04/30/20 04/30/20 14:46 14:51 14:55 Temperature Heart Rate 79 77 78 Respiratory 15 13 13 Rate Blood Pressure 149/64 H 146/66 H 140/51 H O2 Saturation 100 100 100 04/30/20 04/30/20 04/30/20 15:00 15:04 15:19 Temperature Heart Rate 81 76 78 Respiratory 14 16 13 Rate Blood Pressure 149/66 H 142/60 H 162/76 H O2 Saturation 100 98 100 04/30/20 04/30/20 15:33 15:51 Temperature 37.0 C Heart Rate 74 74 Respiratory 18 13 Rate Blood Pressure 140/68 H 142/57 H O2 Saturation 98 100 Oxygen O2 Source Room air - Labs Labs: Laboratory Tests 04/30/20 04/30/20 11:15 11:15 WBC 12.7 H RBC 4.27 Hgb 12.8 Hct 39.8 MCV 93.2 MCH 30.0 MCHC 32.2 RDW 13.2 Plt Count 258 MPV 9.0 Neut # (Auto) 10.8 H Lymph # (Auto) 1.2 L Vernon # (Auto) 0.7 Eos # (Auto) 0.0 Baso # (Auto) 0.1 Absolute Nucleated RBC 0.00 Nucleated RBC % 0.0 Sodium 138 Potassium 3.9 Chloride 102 Carbon Dioxide 28 Anion Gap 8.0 BUN 20 Creatinine 0.8 Estimated GFR (MDRD) 72 L Glucose 135 H Calcium 9.2 Procedures - Procedural sedation Sedation prep: Informed consent, Time out completed, Last meal, ASA 1 - healthy Sedation medications: propofol (80mg) Patient status during sedation: Maintained airway, Recovered uneventfully Sedation recovery: Recovered uneventfully Time in sedation (Minutes): 15 PD MEDICAL DECISION MAKING - ED course ED course: 65yo woman 2 days after hemorrhoidectomy with no BM since and now urinary retention since last night. Presumed fecal impaction with pressure/spasm causing the retention. Straight cath for about 500ml. Pt unable to tolerate rectal exam due to anxiety/pain. A couple of enemas with no output. Spoke with Dr Castro, agrees with exam under anesthetic, also recommends steroids. Exam under anesthesia confirmed fecal impaction and she was digitally disimpacted and another enema placed. She felt much better after this. Had both BM and lg UOP after procedure. Departure - Departure Disposition: 01 Home, Self Care Clinical Impression: Fecal impaction in rectum, Urinary retention Condition: Good Record reviewed to determine appropriate education?: Yes Instructions: ED Impaction Fecal Treated Prescriptions: bisacodyL [Dulcolax] 10 mg PO BID PRN #10 tablet PRN Reason: Constipation Methylprednisolone [Medrol Dose Pack] 1 each PO .PACKAGEINSTRUCTIONS 6 Days #1 each polyethylene glycoL 3350 [Miralax] 17 gm PO DAILY PRN #1 bottle PRN Reason: Constipation Comments: You were seen today for a fecal impaction which subsequently caused urinary retention. We were able to fix this under anesthesia. Return if worsening Followup with Dr Castro as scheduled. Discharge Date/Time: 04/30/20 16:01
[2020-04-30] MEDS ORDERED: SODIUM CHLORIDE 0.9% 1,000 ML IV STA ×2 (11:00→14:24)
[2020-04-30 11:24] LABS: BASOPHILS # (AUTO) 0.1 10^3/uL (0.0-0.1); BASOPHILS % (AUTO) 0.4 %; EOSINOPHILS % (AUTO) 0.1 %; HGB - HEMOGLOBIN 12.8 g/dL (12.0-16.0); LYMPHOCYTES # (AUTO) 1.2 10^3/uL (1.5-3.5); LYMPHOCYTES % (AUTO) 9.2 %; MEAN CORPUSCULAR HGB CONC 32.2 g/dL (32.0-36.0); MEAN CORPUSCULAR VOLUME 93.2 fL (81.0-99.0); MONOCYTES # (AUTO) 0.7 10^3/uL (0.0-1.0); MONOCYTES % (AUTO) 5.1 %; NEUTROPHILS # (AUTO) 10.8 10^3/uL (1.5-6.6); NEUTROPHILS % (AUTO) 84.7 %; PLT - PLATELET COUNT 258 10^3/uL (130-450); RED BLOOD COUNT 4.27 10^6/uL (4.20-5.40); RED CELL DISTRIBUTION WIDTH 13.2 % (12.0-15.0); WHITE BLOOD COUNT 12.7 x10^3/uL (4.8-10.8)
[2020-04-30 11:38] LABS: CALCIUM 9.2 mg/dL (8.5-10.3); CREATININE 0.8 mg/dL (0.4-1.0)
[2020-04-30] MEDS ORDERED: MAGNESIUM CITRATE 296 ML BOTTLE PO STA (11:46)
[2020-04-30] MEDS ORDERED: bisacodyL 5 MG TABLET PO STA (11:46)
[2020-04-30] MEDS ORDERED: LIDOCAINE 2% URO-JET 5 ML SYRINGE UR STA (12:48)
[2020-04-30] MEDS ORDERED: methylPREDNISolone SUCCINATE 40 MG/ML VIAL IVP STA (14:24)
[2020-04-30] MEDS ORDERED: PROPOFOL 200 MG/20 ML VIAL IVP STA (14:24)
[2020-04-30 15:52] VITALS: BP 142/57
== END 2020-04-30 16:01 | disposition home or self-care (01) ==
LOC: ED 10:31
DX: K56.41 Fecal impaction (principal); R33.9 Retention of urine, unspecified; Z98.890 Other specified postprocedural states; K62.89 Other specified diseases of anus and rectum; F41.9 Anxiety disorder, unspecified
CPT/HCPCS: 36415; 51701; 80048; 85025; 96374; 99152; 99284; 99285; A9270; 94770

== ENCOUNTER 2020-06-03 13:20 | Outpatient (CLI) | payer MEDICARE, OTHER | END 2020-06-03 13:21 | disposition home or self-care (01) | LOC: RT 13:20 | PROVIDERS: ATTEND Registered Nurse | DX: R06.09 Other forms of dyspnea (principal) | CPT/HCPCS: 94010 ==

== ENCOUNTER 2021-02-24 12:00 | Outpatient (CLI) | payer MEDICARE, OTHER ==
--- NOTE | 2021-02-25 12:15 | Mammography Report ---
BILATERAL DIGITAL DIAGNOSTIC MAMMOGRAM 3D/2D: 02/24/2021 CLINICAL: Palpable left breast lump and focal pain. Comparison is made to exams dated: 01/14/2020 ultrasound, 01/14/2020 mammogram, 12/10/2019 mammogram - [facility], and 04/17/2015 mammogram - [facility]. The tiss ue of both breasts is heterogeneously dense. This may lower the sensitivity of mammography. No significant masses, calcifications, or other findings are seen in either breast. IMPRESSION: INCOMPLETE: NEEDS ADDITIONAL IMAGING EVALUATION There is no abnormality seen in the left breast to correspond with the palpable abnormality and pain in the upper outer quadrant. Targeted ultrasound is recommended for further evaluation, which will b e scheduled immediately following this exam. This exam was interpreted at Station ID: [id number]. NOTE: For mammograms, a report in lay terms will be sent to the patient. Approximately 15% of breast malignancies will not be visualized mammographically. In the management of a palpable breast mass, a negative mammogram must not discourage biopsy of a clinically suspicious lesion. Electronically Signed By: Virgil omalley/miryam:02/24/2021 13:34:12 ACR BI-RADS Category 0: Incomplete 3340F PARENCHYMAL PATTERN: (D) - The breast(s) demonstrate(s) heterogeneously dense fibroglandular ananya christianson. BI-RADS CATEGORY: (0) - 0 Ultrasound [id number] Immediate follow-up LATERALITY: (L)
--- NOTE | 2021-02-25 12:15 | Ultrasound Report ---
LIMITED ULTRASOUND OF LEFT BREAST: 02/24/2021 CLINICAL: Palpable left breast lump. Focal left breast pain. Comparison is made to exams dated: 02/24/2021 mammogram, 12/10/2019 mammogram - [facility], and 04/17/2015 mammogram - [facility]. Real-time ultrasound of the left breast 12 o'clock region was performed. Michel scale images of the r eal-time examination were reviewed. No significant abnormalities were seen sonographically in the left breast. IMPRESSION: NEGATIVE There is no sonographic evidence of malignancy. There is no abnormality seen in the left breast to correspond with the palpable abnormality and pain, however, clinical followup is recommended. A 1 year screening mammogram is recommended. This exam was interpreted at Station ID: [id number]. Electronically Signed By: Virgil omalley/miryam:02/24/2021 13:47:07 Ultrasound BI-RADS: 1 Negative BI-RADS CATEGORY: (1) - 1 RECOMMENDATION: (ANNUAL) - Recommend routine annual screening mammography. [id number] 1 year screening LATERALITY: (B)
== END 2021-02-24 12:01 | disposition home or self-care (01) ==
LOC: DI 12:00
PROVIDERS: ATTEND Registered Nurse
DX: N64.4 Mastodynia (principal); N63.20 Unspecified lump in the left breast, unspecified quadrant

== ENCOUNTER 2021-10-19 07:56 | Outpatient (CLI) | payer MEDICARE, OTHER ==
--- NOTE | 2021-10-19 11:31 | MRI Report ---
PROCEDURE: Lumbar Spine W/O INDICATIONS: LUMBAR RADICULOPATHY TECHNIQUE: Noncontrast sagittal T1 spin echo and T2 fast echo, sagittal STIR, axial T1 and T2 fast spin echo thr ough the lumbar spine. In cases with scoliosis, additional coronal T2 fast spin echo may be performe d. COMPARISON: None. FINDINGS: Image quality: Excellent. Alignment and Curvature: There is mild, approximately 6 mm of L4-L5 anterolisthesis. Bone Marrow: Marrow uptake type I reactive endplate changes noted adjacent to the L4-L5 and L5-S1 dis cs. Modic type II reactive endplate changes noted adjacent L3-L4 disc. No acute vertebral body compre ssion fractures. Spinal Cord: Conus medullaris terminates at the L1 level. Visualized cord demonstrates normal signa l and size. Paraspinous Soft Tissues: No paravertebral masses. T12-L1: Normal in appearance. L1-L2: Loss of disc signal. No central stenosis. No neural foraminal narrowing. No neural compress ion. L2-L3: Loss of disc signal. Mild, diffuse disc bulge. Mild narrowing of the central canal. Mild bi lateral neural foraminal narrowing. No neural compression L3-L4: Loss of disc signal. Mild, diffuse disc bulge. Mild bilateral facet hypertrophy. Mild-to-mod erate narrowing of the central canal. Mild to moderate bilateral neural foraminal narrowing. No neura l compression L4-L5: Status post partial laminectomy. Loss of disc signal and height. Mild, diffuse disc bulge. M oderate to severe bilateral facet hypertrophy. No central stenosis. Moderate to severe bilateral neur al foraminal narrowing with slight compression of exiting bilateral L4 nerve roots. L5-S1: Loss of disc signal and height. Mild, diffuse disc bulge. Moderate bilateral facet hypertrop hy. Mild ligamentum flavum hypertrophy. Moderate narrowing of the central canal. Moderate to severe b ilateral neural foraminal narrowing with slight compression of the exiting bilateral L5 nerve roots. IMPRESSION: 1. Grade 1 L4-L5 degenerative spondylolisthesis. 2. Multilevel degenerative disc disease. 3. Multilevel facet arthropathy. 4. No severe central canal narrowing. 5. Moderate to severe bilateral L4-L5 and L5-S1 neural foraminal narrowing with slight compression of the exiting bilateral L4 and L5 nerve roots. Reviewed by: Jerilyn Cali MD, PhD on 10/19/2021 11:30 AM PDT Approved by: Jerilyn Cali MD, PhD on 10/19/2021 11:30 AM PDT Station ID: [id number]
== END 2021-10-19 07:57 | disposition home or self-care (01) ==
LOC: DI 07:56
PROVIDERS: ATTEND Registered Nurse
DX: M51.16 Intervertebral disc disorders with radiculopathy, lumbar region (principal); M48.061 Spinal stenosis, lumbar region without neurogenic claudication; M47.26 Other spondylosis with radiculopathy, lumbar region; M51.17 Intervertebral disc disorders with radiculopathy, lumbosacral region; M48.07 Spinal stenosis, lumbosacral region; M47.27 Other spondylosis with radiculopathy, lumbosacral region; M43.16 Spondylolisthesis, lumbar region

== ENCOUNTER 2022-04-12 13:46 | Outpatient (CLI) | payer MEDICARE, OTHER ==
--- NOTE | 2022-04-13 11:34 | Mammography Report ---
BILATERAL DIGITAL SCREENING MAMMOGRAM 3D/2D: 04/12/2022 CLINICAL: Routine screening. Comparison is made to exams dated: 02/24/2021 mammogram, 01/14/2020 mammogram, 12/10/2019 mammogram - [facility], 04/17/2015 mammogram, and 05/04/2012 mammogram - [facility]. Both breasts are heterogeneously dense, which may obscure small masses (category c / 51-75% glandula r tissue). There are benign calcifications in both breasts. No significant masses, calcifications, or other findings are seen in either breast. There has been no significant interval change. IMPRESSION: BENIGN There is no mammographic evidence of malignancy. A 1 year screening mammogram is recommended. Based on the Tyrer Cuzick model (a risk assessment model) the patients lifetime risk is 7.6% and her 10 year risk is 4.5%. According to the ACR, ACS, and NCCN guidelines, an annual breast MRI exam belinda g with mammogram is recommended if the patients lifetime risk is 20% or greater. This exam was interpreted at Station ID: [id number]. NOTE: For mammograms, a report in lay terms will be sent to the patient. Approximately 15% of breast malignancies will not be visualized mammographically. In the management of a palpable breast mass, a negative mammogram must not discourage biopsy of a clinically suspicious lesion. Electronically Signed By: Ant High M.D. acr/penrad:04/12/2022 15:58:56 ACR BI-RADS Category 2: Benign Finding(s) 3342F PARENCHYMAL PATTERN: (D) - The breast(s) demonstrate(s) heterogeneously dense fibroglandular ananya christianson. BI-RADS CATEGORY: (2) - 2 RECOMMENDATION: (ANNUAL) - Recommend routine annual screening mammography. [id number] 1 year screening LATERALITY: (B)
== END 2022-04-12 13:47 | disposition home or self-care (01) ==
LOC: DI 13:46
PROVIDERS: ATTEND Registered Nurse
DX: Z12.31 Encounter for screening mammogram for malignant neoplasm of breast (principal)

== ENCOUNTER 2023-05-13 08:59 | Outpatient (CLI) | payer MEDICARE, OTHER ==
--- NOTE | 2023-05-16 12:15 | Mammography Report ---
BILATERAL DIGITAL SCREENING MAMMOGRAM 3D/2D: 05/13/2023 Comparison is made to exams dated: 04/12/2022 mammogram, 02/24/2021 mammogram, 01/14/2020 mammogram - [facility], and 04/17/2015 mammogram - [facility]. Both breasts are heterogeneously dense, which may obscure small masses (category c / 51-75% glandular tissue). There are benign calcifications in the right breast. There also is a biopsy clip in the right breast . No significant masses, calcifications, or other findings are seen in either breast. There has been no significant interval change. IMPRESSION: BENIGN There is no mammographic evidence of malignancy. A 1 year screening mammogram is recommended. Based on the Tyrer Cuzick model (a risk assessment model) the patients lifetime risk is 7.2% and her 10 year risk is 4.6%. According to the ACR, ACS, and NCCN guidelines, an annual breast MRI exam belinda g with mammogram is recommended if the patients lifetime risk is 20% or greater. This exam was interpreted at Station ID: [id number]. NOTE: For mammograms, a report in lay terms will be sent to the patient. Approximately 15% of breast malignancies will not be visualized mammographically. In the management of a palpable breast mass, a negative mammogram must not discourage biopsy of a clinically suspicious lesion. Electronically Signed By: Shruthi vasques/miryam:05/13/2023 11:17:19 letter sent: No_Letter ACR BI-RADS Category 2: Benign Finding(s) 3342F PARENCHYMAL PATTERN: (D) - The breast(s) demonstrate(s) heterogeneously dense fibroglandular ananya christianson. BI-RADS CATEGORY: (2) - 2 Mammogram [id number] 1 year screening LATERALITY: (B)
== END 2023-05-13 09:00 | disposition home or self-care (01) ==
LOC: DI 08:59
PROVIDERS: ATTEND Registered Nurse
DX: Z12.31 Encounter for screening mammogram for malignant neoplasm of breast (principal); R92.333 Mammographic heterogeneous density, bilateral breasts

== ENCOUNTER 2023-05-13 09:00 | Outpatient (CLI) | payer MEDICARE, OTHER ==
--- NOTE | 2023-05-13 11:58 | DEXA Report ---
PROCEDURE: Dexa Spine and/or Hip INDICATIONS: OSTEOPENIA TECHNIQUE: Dual energy x-ray absorptiometry (DXA) was performed on a [employer] System. Regions measur ed are the AP Spine, femoral neck, and if needed forearm. COMPARISON: None FINDINGS: Lumbar Spine: Bone Mineral Density 1.117 g/cm/cm,T score -0.5. Left Femoral Neck: Bone Mineral Density 0.75 g/cm/cm, T score -2.1. Left Hip: Bone Mineral Density 0.83 g/cm/cm,T score -1.4. (T score greater or equal to -1.0: NORMAL) (T score from -1.1 to -2.4: OSTEOPENIA) (T score less than or equal to -2.5 to: OSTEOPOROSIS) Impression: By WHO criteria, this patient has low bone density (osteopenia). Patients with diagnosis of osteoporosis or osteopenia should have regular bone mineral density assess ment. For those eligible for Medicare, routine testing is allowed once every 2 years. Testing frequ ency can be increased for patients who have rapidly progressing disease or for those who are receivin g medical therapy to restore bone mass. Reviewed by: Puma Acosta on 05/13/2023 11:57 AM PST Approved by: Puma Acosta on 05/13/2023 11:57 AM PST Station ID: [id number]
== END 2023-05-13 09:01 | disposition home or self-care (01) ==
LOC: DI 09:00
PROVIDERS: ATTEND Registered Nurse
DX: M85.89 Other specified disorders of bone density and structure, multiple sites (principal)

== ENCOUNTER 2024-01-24 08:41 | Outpatient (CLI) | payer MEDICARE, OTHER ==
--- NOTE | 2024-01-24 18:55 | XRAY Report ---
PROCEDURE: Cervical Spine 2-3V INDICATIONS: CERVICALGIA TECHNIQUE: 3 view(s) of the cervical spine were acquired. COMPARISON: None. FINDINGS: Bones: No fractures or dislocations to the C7-T1 level. Loss of disc height, degenerative endplate c hanges and bilateral uncovertebral hypertrophic changes are noted throughout cervical spine. The late ral masses of C1 appear intact on the odontoid view. No suspicious bony lesions. Soft tissues: No prevertebral soft tissue swelling. IMPRESSION: No displaced fracture or traumatic subluxation. Degenerative disc disease throughout cervical spine. Reviewed by: Favian Awan MD on 01/24/2024 6:54 PM PDT Approved by: Favian Awan MD on 01/24/2024 6:54 PM PDT Station ID: [id number]
== END 2024-01-24 08:42 | disposition home or self-care (01) ==
LOC: DI 08:41
PROVIDERS: ATTEND Registered Nurse
DX: M50.31 Other cervical disc degeneration, high cervical region (principal)